=== PATIENT | male | born 1940 | race Caucasian/White ===

== ENCOUNTER 2017-05-26 12:59 | Emergency (ER) | payer MEDICARE ==
[~2017-05-26] VITALS: Ht 162.6 cm; Wt 54.0 kg
[~2017-05-26 12:59] MED LIST: ATOR40TA PO; DONE10TA14 PO; NAME10TA PO; PAXI30TA7 PO; PROT40TA PO; RISP0.252 PO; TAMS0.4C4 PO; TRAZ100 PO; TYLE3 PO
[2017-05-26 13:01] VITALS: BP 124/72; PULSE 112; RESP 20; TEMP 98.6; O2SAT 94
[2017-05-26 13:04] VITALS: BP 107/64; PULSE 96; RESP 16; TEMP 97.4; O2SAT 94
[2017-05-26] MEDS ORDERED: CEPH-460 PO (13:17)
[2017-05-26] MEDS ORDERED: TYLE325T PO (13:17)
[2017-05-26] MEDS ORDERED: RISP0.5T25 PO (13:17)
[2017-05-26] MEDS ORDERED: ACYC400T PO (13:17)
[2017-05-26] MEDS ORDERED: MEMA1TAB2 PO (13:17)
[2017-05-26] MEDS ORDERED: REST15CA PO (13:17)
[2017-05-26] MEDS ORDERED: MELA5 PO (13:17)
[2017-05-26] MEDS ORDERED: CHOL5000 PO (13:17)
[2017-05-26] MEDS ORDERED: PARO20TA2 PO (13:17)
--- NOTE | 2017-05-26 13:19 | PD ---
HPI . Rash Chief Complaint: Skin Problem Time Seen by Provider: 13:18 Travel History International Travel<30 days: No Contact w/Intl Traveler<30days: No Traveled to known affect area: No History of Present Illness HPI This patient is brought in by his family with a chief complaint of a rash on the right side of his forehead. Onset was yesterday. He was seen by his primary care provider yesterday and diagnosed with either cellulitis or shingles prescribed Keflex and acyclovir. He has taken these as prescribed. This morning, he developed involvement of his right eye. He was subsequently brought here for evaluation and treatment. The patient reports no pain. Family states that he has had a previous stroke and that he no longer complains with pain. He denies any visual disturbance. His family reports that they have checked his vision at home and that he is able to see out of his right eye. PFSH Past Medical History Arthritis: Yes Anxiety: Yes (panic attacks) COPD: Yes Cerebrovascular Accident: Yes Dementia: Yes Diabetes: No Diminished Hearing: No Endocrine: No GERD: Yes Hypertension: Yes Immune Disorder: No Musculoskeletal: Yes (CHRONIC BACK PAIN) Neurologic: Yes Respiratory: No Pneumonia: Yes Seizures: No Shingles: Yes Tetanus Vaccination: > 5 Years Influenza Vaccination: Yes Past Surgical History Cholecystectomy: Yes Other Surgery: Yes (VINTRICULOSTOMY 2015) Social History Alcohol Use: Yes (occasionally ) Tobacco Use: Yes (QUIT October) Substance Use: No Allergies-Medications (Allergen,Severity, Reaction): Coded Allergies: No Known Allergies (Verified Adverse Reaction, Unknown, 05/26/17) Reported Meds & Prescriptions Reported Meds & Active Scripts Active Reported Acyclovir 400 Mg Tab 500 Mg PO BID Keflex (Cephalexin) 500 Mg Cap 500 Mg PO Q6H Memantine 10 Mg Tab 10 Mg PO BID Risperdal (Risperidone) 0.5 Mg Tab 0.5 Mg PO Q12HR Paroxetine (Paroxetine HCl) 20 Mg Tab 20 Mg PO DAILY Restoril (Temazepam) 15 Mg Cap 15 Mg PO HS PRN Tylenol (Acetaminophen) 325 Mg Tab 500 Mg PO BID PRN Vitamin D3 (Cholecalciferol) 5,000 Unit Cap 5,000 Units PO DAILY Melatonin 5 Mg Tab 6 Mg PO HS Review of Systems Except as stated in HPI: all other systems reviewed are Neg Eyes: Positive: Drainage, Redness, Tearing Skin: Positive Rash Physical Exam Narrative GENERAL: Awake and alert and in no acute distress. SKIN: Warm and dry. He has scattered erythematous lesions on the right forehead and bridge of his nose. There are no vesicles or scabs yet. HEAD: Normocephalic/atraumatic. EYES: Pupils are equal. Extraocular movements are intact. The conjunctiva of his right eye is edematous and erythematous with some clear drainage. NECK: Normal range of motion. CARDIOVASCULAR: Regular rate and rhythm. RESPIRATORY: Nonlabored respirations. MUSCULOSKELETAL: Atraumatic. NEUROLOGICAL: Nonfocal. PSYCHIATRIC: Appropriate mood and affect. Data Data Last Documented VS Vital Signs Date Time Temp Pulse Resp B/P (MAP) Pulse Ox O2 Delivery O2 Flow Rate FiO2 05/26/17 13:09 98 16 05/26/17 13:04 97.4 107/64 (78) 94 05/26/17 13:01 Room Air MDM Medical Decision Making Medical Screen Exam Complete: Yes Emergency Medical Condition: Yes Differential Diagnosis Differential diagnosis includes but is not limited to chemical irritation, allergic conjunctivitis, viral conjunctivitis, bacterial conjunctivitis, chronic dry eyes. Narrative Course This patient presents with a rash which is confined to the right side of his forehead and nose. He was seen by his primary care provider for yesterday and started on both Keflex and acyclovir for cellulitis versus shingles. Today, he has redness and swelling of the right eye. He seemed subsequently brought him here for further evaluation and treatment. UpToDate was queried. It recommends the initiation of steroid eyedrops in addition to oral acyclovir. That has been ordered. Diagnosis Primary Impression: Herpes zoster ophthalmicus of right eye Patient Instructions: General Instructions, Shingles (DC) Med/Other Pt SpecificInfo: Prescription(s) given Scripts Prednisolone Acetate Opth Drops (Omnipred Opth Drops) 1% Susp 1 DROP RIGHT EYE QID for Inflammation, #1 BOTTLE 0 Refills Prov: Mallika Walker MD 05/26/17 Disposition: 01 DISCHARGE HOME Condition: Stable Mallika Walker MD May 26, 2017 13:19
[2017-05-26] MEDS ORDERED: OMNI1SUS RIGHT EYE (13:24)
== END 2017-05-26 13:57 | disposition home or self-care (01) ==
LOC: NEPE 12:59
DX: B02.30 Zoster ocular disease, unspecified (principal); F41.9 Anxiety disorder, unspecified; J44.9 Chronic obstructive pulmonary disease, unspecified; F03.90 Unspecified dementia, unspecified severity, without behavioral disturbance, psychotic disturbance, mood disturbance, and anxiety; K21.9 Gastro-esophageal reflux disease without esophagitis; I10 Essential (primary) hypertension; Z86.73 Personal history of transient ischemic attack (TIA), and cerebral infarction without residual deficits; Z79.899 Other long term (current) drug therapy
CPT/HCPCS: 99283